=== PATIENT | female | born 1960 | race Two or more races ===

== ENCOUNTER 2020-06-27 19:26 | Emergency (ER) | payer OTHER ==
[~2020-06-27] VITALS: Ht 160 cm; Wt 57.6 kg
[2020-06-27] MEDS ORDERED: LEVOXYL25 MCG ORAL (19:47)
[2020-06-27] MEDS ORDERED: CHLORTHALIDONE25 MG ORAL (19:47)
[2020-06-27] MEDS ORDERED: ATORVASTATIN CA10 MG ORAL (19:47)
[2020-06-27] MEDS ORDERED: METOPROLOL-HCT1 EAC3 ORAL (19:47)
[2020-06-27] MEDS ORDERED: Morphine Sulfate 2mg/ml Inj(IV/IM USE ONLY) IVP ONE (20:30)
--- NOTE | 2020-06-27 21:00 | NUR ---
ED Nurse Note: Patient walked into the ED from home with c/o abdominal pain onset 9 hrs ago. Pain is 8/10 at epigastric area that diffuses throughout abdomen. Patient was seen in an urgent care and was advised to go to the ER. Pt denies injury/ trauma. N/V/D, denies CP/SOB/. Pt is aAox4 and ambulatory. Placed on monitor bed
--- NOTE | 2020-06-27 21:05 | NUR ---
ED Nurse Note: ERMD at bedside
--- NOTE | 2020-06-27 21:11 | Emergency Room Report ---
History of Present Illness General Chief Complaint: Abdominal Pain Source: Patient, Medical Record Present Illness HPI 60-year-old female with past medical history of diabetes, hypertension, hypothyroidism, dyslipidemia sent from urgent care for evaluation of epigastric abdominal pain that started 9 hours prior to arrival. The pain is now diffuse throughout the abdomen. Patient was seen initially at outside urgent care and the PA sent her to the emergency department for further evaluation. They gave her a Covid PCR which was negative. Patient endorses nausea, vomiting, diarrhea since the onset of the symptoms. Denies melena, hematochezia, hematuria, dysuria, flank pain, rash, headache, fever, back pain, recent sick contacts, or travel. The patient's symptoms were gradual onset, severity was moderate, duration since 9 hours Quality: dull, aching. Past medical history: Diabetes, hypertension, hypothyroidism, dyslipidemia Past surgical history: x2 Smoking: Denies Alcohol use: Denies Drug use: Denies Review of systems: CONST: No fevers ++ chills, No night sweats PULMONARY: No productive cough, No shortness of breath CARDIAC: No chest pain, No palpitations GI: ++ vomiting, ++ diarrhea , No melena_or_BRBPR : No dysuria, No hematuria, No discharge NEURO: No new_focal_weakness_or_numbness, No confusion, No vision changes 14 point Review of Systems is otherwise negative except per HPI Physical Exam: GENERAL: Awake_alert_ nontoxic, no acute distress Spo2 97% on RA -normal EYES: Extraocular muscles are intact. Conjunctivae clear. Lids without swelling ENT: External nose and ear normal_in_appearance. Oropharynx clear. Head_atraumatic, Moist_oral_mucosa NECK: No JVD. No meningismus. No thyromegaly. Supple. Trachea midline RESP: Normal respiratory effort. Symmetric rise. No stridor. Clear_to_auscultation_No_rales_No_wheezes CARDIAC: Regular rate and regular rhytm. No_significant pedal edema. ABDOMEN: Soft. Nondistended. Diffuse voluntary guarding. Negative Van sign. Negative Rovsing sign. Negative obturator sign. Neg ative psoas sign. MSK: Normal muscle tone, without rigidity. Extremities without asymmetric deformity or swelling. SKIN: Warm and dry. No visible cyanosis or pallor NEUROLOGIC: Alert, oriented x3. Motor_and_sensation_grossly_intact. No truncal ataxia. Gait_normal Psych: Normal mood and affect, normal judgment and insight - COORDINATION OF CARE Case was discussed with: Patient Any labs and imaging that were ordered were interpreted as part of the medical decision making: Medical Decision Making/Plan: Differential diagnosis includes cholecystitis, choledocholithiasis, hepatitis, small bowel obstruction, volvulus, AAA, pancreatitis, atypical appendicitis, gastroparesis, gastritis, peptic ulcer disease, among others. Patient is well appearing with stable vital signs. Abdominal exam is non peritoneal with no guarding or rebound. Labs and CT ordered. EKG is nonischemic. Doubt epigastric pain as anginal equivalent. ED intervention included IVFs, zosyn, and morphine for pain control. Zofran was given as antiemetic. The patient denies any bloody stool and has no pain out of proportion to exam, and no significant risk factors for mesenteric ischemia such as atrial fibrillation or severe PAD/PVD (peripheral arterial / vascular disease), thus definitive workup to rule out mesenteric ischemia was not pursued. Patient is afebrile, without any significant tenderness in the RUQ, and a negative [place] sign. The patients presentation does not appear to be consistent with acute cholecystitis Care to be signed out to oncoming ED provider pending CT to eval for acute appendicitis. 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 COVID-19 Screening: Negative COVID-19 COVID-19 Testing Source: [place] Patient History Last Menstrual Period: n/a Nursing Documentation-[facility] Past Medical History: No History, Except For Hx Hypertension: Yes - hypertension Physical Exam Vital Signs Date Time Temp Pulse Resp B/P (MAP) Pulse Ox O2 Delivery O2 Flow Rate FiO2 06/27/20 19:42 99.3 88 18 145/75 (98) 97 Room Air Sp02 EP Interpretation: reviewed, normal Medical Decision Making Diagnostic Impression: Primary Impression: Abdominal pain Additional Impressions: Nausea & vomiting HTN (hypertension) Diabetes HLD (hyperlipidemia) EKG Diagnostic Results Troponin ordered: Yes When was troponin ordered?: Jun 27, 2020 Rhythm Strip Diag. Results Rhythm Strip Time: 21:11 Rate: 88 Rhythm: NSR, no PVC's, no ectopy PA Scribe Text 12-lead EKG (interpreted by me) Time: 2115 Indication: Rhythm analysis Tracing visualized and Interpreted by me. Rhythm: NSR Rate: 67 bpm QTc: 420 Morphology: No_significant_ST_elevations_or_depressions, No STEMI Impression: Normal_sinus_rhythm_without_significant_abnormality Reevaluation Time: 21:25 Last Vital Signs Date Time Temp Pulse Resp B/P (MAP) Pulse Ox O2 Delivery O2 Flow Rate FiO2 06/27/20 19:42 99.3 88 18 145/75 (98) 97 Room Air Status: improved Admit Decision Time: 22:00 Condition: Stable Signed Out To: Dr Stepan Castro Referrals: [facility],REFERRING (PCP) Jaylin Castrejon D.O. Jun 27, 2020 21:11
[2020-06-27] MEDS ORDERED: Piperacillin/Tazobactam 3.375 GM in NS 110 ML IVPB ONE (21:15)
--- NOTE | 2020-06-27 21:15 | NUR ---
ED Nurse Note: Blood and urine sent to lab
[2020-06-27 21:31] LABS: APPEARANCE,URINE CLEAR; BILIRUBIN, URINE NEGATIVE (NEGATIVE); COLOR,URINE PALE YELLOW; GLUCOSE, URINE (UA) NEGATIVE (NEGATIVE); KETONES,URINE NEGATIVE (NEGATIVE); LEUKOCYTE ESTERASE ,URINE 1+ (NEGATIVE); NITRITE,URINE NEGATIVE (NEGATIVE); PH,URINE 6 (4.5-8.0); PROTEIN,URINE NEGATIVE (NEGATIVE); UROBILINOGEN,URINE NORMAL MG/DL (0.0-1.0)
[2020-06-27 21:42] LABS: BASOPHILS % (AUTO) 0.4 % (0.0-2.0); EOSINOPHILS % (AUTO) 0.7 % (0.0-3.0); HEMATOCRIT 35.5 % (37.0-47.0); HEMOGLOBIN 12.2 G/DL (12.0-16.0); LYMPHOCYTES % (AUTO) 24.5 % (20.0-45.0); MEAN CORPUSCULAR VOLUME 84 FL (80-99); MONOCYTES % (AUTO) 5.6 % (1.0-10.0); NEUTROPHILS % (AUTO) 68.9 % (45.0-75.0); PLATELET COUNT 247 K/UL (150-450); RED CELL DISTRIBUTION WIDTH 12.3 % (11.6-14.8); WHITE BLOOD COUNT 6.3 K/UL (4.8-10.8)
[2020-06-27 21:43] LABS: ANION GAP 8 mmol/L (5-15); BLOOD UREA NITROGEN 10 mg/dL (7-18); CALCIUM 9.1 MG/DL (8.5-10.1); CARBON DIOXIDE 29 MMOL/L (21-32); CHLORIDE 102 MMOL/L (98-107); CREATININE 0.7 MG/DL (0.55-1.30); POTASSIUM 3.5 MMOL/L (3.5-5.1); SODIUM 139 MMOL/L (136-145)
[2020-06-27 21:49] LABS: ALANINE AMINOTRANSFERASE 44 U/L (12-78); ALBUMIN 3.8 G/DL (3.4-5.0); ALBUMIN/GLOBULIN RATIO 0.9 (1.0-2.7); ALKALINE PHOSPHATASE 91 U/L (46-116); ASPARTATE AMINO TRANSFERASE 25 U/L (15-37); BILIRUBIN,TOTAL 0.4 MG/DL (0.2-1.0)
--- NOTE | 2020-06-27 22:15 | NUR ---
ED Nurse Note: CT scan done
--- NOTE | 2020-06-27 22:47 | Diagnostic Imaging Report ---
EXAM: CT Abdomen and Pelvis With Intravenous Contrast CLINICAL HISTORY: PAIN TECHNIQUE: Axial computed tomography images of the abdomen and pelvis with intravenous contrast. CTDI is 4.00 mGy and DLP is 205.4 mGy-cm. One or more of the following dose reduction techniques were used: automated exposure control, adjustment of the mA and/or kV according to patient size, use of iterative reconstruction technique. COMPARISON: No relevant prior studies available. FINDINGS: Lung bases: No focal consolidation or effusions. Mild hypoventilatory changes in the lung bases. Left lower lobe subsegmental atelectasis. Subcentimeter left lower lobe calcified granuloma (4: 2). ABDOMEN: Liver: Unremarkable. Patent portal veins. Gallbladder and bile ducts: Unremarkable. No calcified stones. No ductal dilation. No pericholecystic inflammatory changes. Pancreas: Unremarkable. No ductal dilation. Spleen: Unremarkable. No splenomegaly. Adrenals: Unremarkable. No mass. Kidneys and ureters: Unremarkable. No hydronephrosis. No hydroureter. The kidneys enhance symmetrically. Stomach and bowel: Small hiatal hernia. No obstruction. No mucosal thickening. PELVIS: Appendix: Normal appendix (coronal 15). Bladder: Unremarkable. Reproductive: Unremarkable as visualized. ABDOMEN and PELVIS: Intraperitoneal space: Unremarkable. No free air. No significant fluid collection. Bones/joints: No acute fracture. No dislocation. L5-S1 degenerative disc disease. Soft tissues: Unremarkable. Vasculature: Atherosclerotic vascular calcifications. No abdominal aortic aneurysm. Lymph nodes: Unremarkable. No enlarged lymph nodes. IMPRESSION: No acute process identified within the abdomen or pelvis to explain the patient's abdominal pain.
[2020-06-27 22:52] VITALS: BP 145/75
[2020-06-27] MEDS ORDERED: PRILOSEC OTC20 MG ORAL (23:09)
[2020-06-27 23:23] VITALS: BP 145/75
--- NOTE | 2020-06-27 23:23 | NUR ---
ER DISCHARGE NOTE: Patient is cleared to be discharged per ERMD, pt is aox4, on room air, with stable vital signs. pt was given dc and prescription instructions, pt was able to verbalize understanding, pt id band and iv site removed without complications. pt is able to ambulate with steady gait. pt took all belongings.
== END 2020-06-27 23:24 | disposition home or self-care (01) ==
LOC: EMR 19:54
DX: R10.9 Unspecified abdominal pain (principal); R11.2 Nausea with vomiting, unspecified; I10 Essential (primary) hypertension; E11.9 Type 2 diabetes mellitus without complications; E78.5 Hyperlipidemia, unspecified
CPT/HCPCS: 36415; 74177; 80053; 80307; 81003; 83690; 84484; 85025; 85610; 85730; 86850; 86900; 86901; 87040; 93005; 96361; 96365; 96375; J2270; J2405; J2543; J7030; Q9965; Z7502; 99284

== ENCOUNTER 2020-06-29 00:59 | Emergency (ER) | payer OTHER ==
[~2020-06-29] VITALS: Ht 170.2 cm; Wt 68.0 kg
[~2020-06-29 00:59] MED LIST: ATORVASTATIN CA10 MG ORAL; CHLORTHALIDONE25 MG ORAL; LEVOXYL25 MCG ORAL; METOPROLOL-HCT1 EAC3 ORAL; PRILOSEC OTC20 MG ORAL
--- NOTE | 2020-06-29 01:26 | NUR ---
ED Nurse Note: Patient walked in to the ED with c/o headache onset yesterday. Pt stated she woke up last night and feeling nauseated and feeling weak with numbness on upper and lower ext. Pt also stated feeling hot. denies injury/ trauma.Pt stated headache comes and goes and pulsating, 09/22. Patient denies CP/SOB/, N/V/D, fever or chills. Pt is AAOx4 and ambulatory
--- NOTE | 2020-06-29 01:27 | NUR ---
ED Nurse Note: ERMD at bedside
[2020-06-29] MEDS ORDERED: DiphenhydrAMINE 50mg/ml Inj IVP ONE (01:30)
[2020-06-29] MEDS ORDERED: Metoclopramide 10mg/2ml Inj IVP ONE (01:30)
[2020-06-29] MEDS ORDERED: Ketorolac 30mg Inj IV ONE (01:30)
--- NOTE | 2020-06-29 01:33 | Emergency Room Report ---
History of Present Illness General Chief Complaint: Headache Source: Patient, Family Member, Medical Record Present Illness HPI This is a 60-year-old female with history of high blood pressure. She presents with chief complaint of headache. Onset for half a day now. Pain is diffuse in nature. Throbbing in nature. Pain is 8 out of 10. Also with numbness to her upper body. No fever chills but no nausea no vomiting. Which is here yesterday for abdominal pain with normal blood work and normal CT. No focal deficit. No slurred speech. Has not taken anything for the pain. Allergies: Coded Allergies: No Known Allergies (Unverified , 06/27/20) COVID-19 Screening Contact w/high risk pt: No Experienced COVID-19 symptoms?: No COVID-19 Testing performed HEALTH OFFICER: No COVID-19 Screening: Negative COVID-19 COVID-19 Testing Source: [facility] Patient History Past Medical History: see triage record, old chart reviewed, HTN Past Surgical History: other Pertinent Family History: none Social History: Denies: smoking Now: No Immunizations: other Reviewed Nursing Documentation: PMH: Agreed; PSxH: Agreed Nursing Documentation-PMH Hx Hypertension: Yes - hypertension Review of Systems Eye: Denies: eye pain, blurred vision ENT: Denies: ear pain, nose congestion, throat swelling Respiratory: Denies: cough, shortness of breath Cardiovascular: Denies: chest pain, palpitations Gastrointestinal: Denies: abdominal pain, diarrhea, nausea, vomiting Musculoskeletal: Denies: back pain, joint pain Skin: Denies: rash Neurological: Reports: headache; Denies: numbness Endocrine: Denies: increased thirst, increased urine Hematologic/Lymphatic: Denies: easy bruising All Other Systems: negative except mentioned in HPI Physical Exam Vital Signs Date Time Temp Pulse Resp B/P (MAP) Pulse Ox O2 Delivery O2 Flow Rate FiO2 06/29/20 01:14 98.1 85 20 164/81 (108) 98 Room Air Vitals with high blood pressure Sp02 EP Interpretation: reviewed, normal General Appearance: well appearing, no apparent distress, alert Head: normocephalic, atraumatic Eyes: bilateral eye PERRL, bilateral eye EOMI ENT: hearing grossly normal, normal pharynx Neck: full range of motion, supple, no meningismus Respiratory: chest non-tender, lungs clear, normal breath sounds Cardiovascular #1: regular rate, rhythm, no murmur Gastrointestinal: normal bowel sounds, non tender, no mass, no organomegaly, no bruit, non-distended Musculoskeletal: back normal, normal range of motion, gait/station normal Psychiatric: mood/affect normal Medical Decision Making Diagnostic Impression: Primary Impression: Headache Qualified Codes: R51.9 - Headache, unspecified Additional Impression: HTN (hypertension) Qualified Codes: I10 - Essential (primary) hypertension ER Course Patient presents with headache. Her blood pressure was elevated. No evidence of meningitis, bleed or neoplastic process. She felt better now. Will discharge home. CT/MRI/US Diagnostic Results CT/MRI/US Diagnostic Results : Imaging Test Ordered: CT head Impression Negative per radiologist Last Vital Signs Date Time Temp Pulse Resp B/P (MAP) Pulse Ox O2 Delivery O2 Flow Rate FiO2 06/29/20 01:14 98.1 85 20 164/81 (108) 98 Room Air Status: improved Disposition: HOME, SELF-CARE Condition: Improved Scripts Meloxicam* (MOBIC*) 15 Mg Tablet 15 MG ORAL DAILY, #30 TAB 0 Refills Prov: Сергей Castro MD 06/29/20 Referrals: [facility],REFERRING (PCP) Patient Instructions: Tension Headache Additional Instructions: Follow-up with your doctor in 7 days. Return if symptoms worsen. Сергей Castro MD Jun 29, 2020 01:33
[2020-06-29 01:51] VITALS: BP 164/81
--- NOTE | 2020-06-29 02:02 | Diagnostic Imaging Report ---
EXAM: CT Head Without Intravenous Contrast CLINICAL HISTORY: PAIN TECHNIQUE: Axial computed tomography images of the head/brain without intravenous contrast. CTDI is 53.4 mGy and DLP is 912 mGy-cm. One or more of the following dose reduction techniques were used: automated exposure control, adjustment of the mA and/or kV according to patient size, use of iterative reconstruction technique. COMPARISON: No relevant prior studies available. FINDINGS: Brain: Unremarkable. No hemorrhage. No significant white matter disease. No edema. Ventricles: Unremarkable. No ventriculomegaly. Bones/joints: Unremarkable. No acute fracture. Soft tissues: Unremarkable. Sinuses: Unremarkable as visualized. No acute sinusitis. Mastoid air cells: Unremarkable as visualized. No mastoid effusion. IMPRESSION: Normal head/brain CT.
[2020-06-29] MEDS ORDERED: MOBIC15 MG ORAL (02:16)
[2020-06-29 02:26] VITALS: BP 164/81
[2020-06-29] MEDS ORDERED: DOPAMINE 800mg/250ml 250 ML IV SCH (02:30)
== END 2020-06-29 02:27 | disposition home or self-care (01) ==
LOC: EMR 01:19
DX: R51.9 Headache, unspecified (principal); I10 Essential (primary) hypertension
CPT/HCPCS: 70450; 96374; 96375; J1200; J1885; J2765; Z7502; 99284